=== PATIENT | female | born 1970 | race Caucasian/White ===

== ENCOUNTER 2018-08-01 11:34 | Day surgery (SDC) | payer BC ==
[2018-07-31 16:52] VITALS: BMI 25.6
[~2018-08-01] VITALS: Ht 157.5 cm; Wt 63.5 kg
[2018-08-01] VITALS (12 sets, daily range): BP systolic 93–112; BP diastolic 46–66; PULSE 16–80; RESP 16–27; Ht 157.5 cm; Wt 63.5 kg
[~2018-08-01 11:34] MED LIST: BUPIVACAINE 0.25% (STERILE-PAK) 30 ML INJ INJ ONE
[2018-08-01] MEDS ORDERED: SOD CHLORIDE 0.9% 1,000 ML IV SCH (12:00)
[2018-08-01] MEDS ORDERED: CEFAZOLIN 1 GM/50 ML (PMX) 50 ML IVPB ONE (12:00)
--- NOTE | 2018-08-01 14:10 | HPN ---
Date/Time of Note Date/Time of Note DATE: 08/01/18 TIME: 14:10 Interval H&P Admission Note Pt. seen H&P reviewed: No system changes KARY GANT MD Aug 01, 2018 14:10
--- NOTE | 2018-08-01 14:23 | PREAC ---
Date/Time of Note Date/Time of Note DATE: 08/01/18 TIME: 14:22 Anesthesia Eval and Record Evaluation Time Pre-Procedure Interview DATE: 08/01/18 TIME: 14:22 Age 47 Sex female NPO: 8 hrs Preoperative diagnosis HEMMORROIDS Planned procedure HEMNNHORIDECTOMY, EXAM UNDER ANESTHESIA Past Medical History Past Medical History: None Surgery & Anesthesia Issues No known issue Meds Anticoagulation: No Beta Huy within 24 hr: No Reason Beta Huy not given: Pt. not on B-Huy No Active Prescriptions or Reported Meds Current Medications Sodium Chloride 1,000 ml @ 75 mls/hr [id number] IV Last administered on 08/01/18at 12:54; Admin Dose 75 MLS/HR; Start 08/01/18 at 12:00; Stop 08/02/18 at 01:19 Meds reviewed: Yes Allergies Coded Allergies: No Known Drug Allergies (Unverified Allergy, Unknown, 08/01/18) Allergies Reviewed: Yes Labs/Studies Labs Reviewed: Reviewed by anesthesiologist Result Diagram: 08/01/18 1240 08/01/18 1240 Laboratory Tests 08/01/18 12:40 test: Negative Pre-procedure Exam Last vitals Vital Signs Date Temp Pulse Resp B/P (MAP) Pulse Ox O2 O2 Flow FiO2 Time Delivery Rate 08/01/18 97.7 16 16 106/51 96 13:11 (69) Airway: Adequate mouth opening, Adequate thyromental dist Mallampati: Mallampati II Teeth: Normal Lung: Normal Heart: Normal ASA Physical Status ASA physical status: 1 Emergency: None Planned Anesthetic General/MAC: ETT Planned Pain Management Parenteral pain med Pre-operative Attestations Prior to commencing anesthesia and surgery, the patient was re-evaluated, there was verification of: *The patient's identity *The results of appropriate recent lab work and preoperative vital signs *The above evaluation not changing prior to induction *Anesthetic plan, risk benefits, alternative and complications discussed with patient/family; questions answered; patient/family understands, accepts and wishes to proceed. ANITA SANDOVAL Aug 01, 2018 14:23
[2018-08-01] MEDS ORDERED: PROPOFOL 20 ML ONE (14:27)
[2018-08-01] MEDS ORDERED: ROCURONIUM 50 MG INJ ONE (14:29)
[2018-08-01] MEDS ORDERED: DEXAMETHASONE 4 MG/ML 5 ML INJ ONE (14:44)
[2018-08-01] MEDS ORDERED: LIDOCAINE 2% (SDV) 5 ML INJ ONE (14:44)
[2018-08-01] MEDS ORDERED: ONDANSETRON 4 MG INJ ONE (14:44)
[2018-08-01] MEDS ORDERED: CEFAZOLIN 1 GM INJ ONE (14:44)
[2018-08-01] MEDS ORDERED: BUPIVACAINE 0.25%/EPI (SDV) 30 ML INJ ONE (14:48)
[2018-08-01] MEDS ORDERED: BACITRACIN/POLYMYXIN 28.35 GM OINT TOP ONE (14:57)
[2018-08-01] MEDS ORDERED: SUGAMMADEX SODIUM 200 MG/2 ML VIAL IV ONE (15:00)
--- NOTE | 2018-08-01 15:08 | OPR ---
Date/Time of Note Date/Time of Note DATE: 08/01/18 TIME: 15:03 Operative Report Procedure Date: Aug 01, 2018 Preoperative Diagnosis Internal hemorrhoids Postoperative Diagnosis Internal hemorrhoids Operation/Procedure Performed 1. Exam under anesthesia 2. Internal hemorrhoidectomy 3. 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 These have been present for approximately 27 years. Patient had tried and failed medical therapy without any relief. She was scheduled for exam under anesthesia, total internal hemorrhoidectomy and rigid sigmoidoscopy. All risks and benefits of the procedure including, but not limited to: Wound infection, excessive bleeding, prolonged wound healing, incontinence to stool/feces which may be temporary versus permanent, anal stricture, hemorrhoid recurrence, etc. were all explained to the patient in full detail. The patient fully understood and wished to proceed with the procedure. Informed consent was obtained. The patient was instructed to take enemas the day before and morning of surgery. Procedure Description Patient was brought to the operating room and kept on her stretcher. Bilateral sequential compression devices were placed on both lower extremities. A dose of broad-spectrum perioperative intravenous antibiotics was given. After the induction of smooth general anesthesia the patient was positioned in the prone position with all pressure points padded. The anus, perineum and buttocks were prepped and draped in standard surgical fashion. After performance of the surgical timeout 0.25% Marcaine with epinephrine was injected around the anus. Exam under anesthesia did not show any fissures or fistulas. There were no external hemorrhoids were identified. Grade 1 internal hemorrhoids were identified involving the right lateral, right posterior and the left lateral position. They were each grasped using Michel clamps and transected at their base using a vessel sealing device and passed off the field as specimen. Hemostasis was then inspected for and noted to be adequate. Rigid sigmoidoscopy was then performed. Quality of the prep was good. There were no masses visualized in the areas of the distal rectum and anus which could be seen with the sigmoidoscope. The anal canal comfortably fit 2 fingers upon completion of the procedure. Further local anesthesia was then injected around the anus. The area was then irrigated. Bacitracin ointment was applied as well as sterile dressings. The patient was then awoken from anesthesia and transferred to recovery room in stable condition. All counts were correct at the end of the case 2. KARY GANT MD Aug 01, 2018 15:08
[2018-08-01] MEDS ORDERED: BUPIVACAINE 0.25% (STERILE-PAK) 30 ML INJ INJ ONE (15:18)
--- NOTE | 2018-08-01 15:21 | PAC ---
Date/Time of Note Date/Time of Note DATE: 08/01/18 TIME: 15:21 Post-Anesthesia Notes Post-Anesthesia Note Last documented vital signs Vital Signs Date Temp Pulse Resp B/P (MAP) Pulse Ox O2 O2 Flow FiO2 Time Delivery Rate 08/01/18 97.7 16 16 106/51 96 1521 (69) Activity: WNL Respiratory function: WNL Cardiovascular function: WNL Mental status: Baseline Pain reasonably controlled: Yes Hydration appropriate: Yes Nausea/Vomiting absent: Yes ANITA SANDOVAL Aug 01, 2018 15:21
[2018-08-01] MEDS ORDERED: OXYCODONE/ACETAMINOPHEN (5/325) TAB PO PRN ×2 (15:30)
[2018-08-01] MEDS ORDERED: IBUPROFEN 600 MG TAB PO PRN (15:30)
[2018-08-01] MEDS ORDERED: HYDROmorphONE 1 MG/5 ML IV SYRINGE IV PRN ×3 (15:30)
[2018-08-01] MEDS ORDERED: KETOROLAC 30 MG INJ IV PRN ×2 (15:30)
[2018-08-01] MEDS ORDERED: MIDAZOLAM 1 MG/ML 2 ML INJ IV PRN (15:30)
[2018-08-01] MEDS ORDERED: EPHEDrine 25 MG/5 ML SYG IV PRN (15:30)
[2018-08-01] MEDS ORDERED: LABETALOL HCL 20MG INJ IV PRN (15:30)
[2018-08-01] MEDS ORDERED: MEPERIDINE 25 MG INJ IV PRN (15:30)
[2018-08-01] MEDS ORDERED: METOCLOPRAMIDE 10 MG INJ IV PRN (15:30)
[2018-08-01] MEDS ORDERED: ONDANSETRON 4 MG INJ IV PRN ×2 (15:30)
[2018-08-01] MEDS ORDERED: ALBUTEROL 0.083% (NEB) 2.5 MG/3 ML AMP HHN PRN (15:30)
[2018-08-01] MEDS ORDERED: DIPHENHYDRAMINE 50 MG INJ IV PRN (15:30)
[2018-08-01] MEDS ORDERED: morphine 2 MG INJ IV PRN (15:30)
[2018-08-01] MEDS ORDERED: hydrALAzine 20 MG INJ IV PRN (15:30)
[2018-08-01] MEDS ORDERED: FENTAnyl 50 MCG/ML VIAL IV PRN ×3 (15:30)
== END 2018-08-01 17:30 | disposition home or self-care (01) ==
LOC: SDS 11:34
PROVIDERS: ATTEND Surgery
DX: K64.0 First degree hemorrhoids (principal); F32.9 Major depressive disorder, single episode, unspecified
CPT/HCPCS: 46255; 80053; 84703; 85025; 85610; 85730; 88304; J0690; J1100; J2405; J3010; Z7512; Z7610